=== PATIENT | female | born 1975 | race Asian ===

== ENCOUNTER 2018-07-15 13:34 | Emergency (ER) | payer OTHER ==
[~2018-07-15] VITALS: Ht 149.9 cm; Wt 79.8 kg
[2018-07-15 13:43] VITALS: TEMP 97.9
[2018-07-15 15:49] VITALS: BP 124/83
== END 2018-07-15 15:52 | disposition home or self-care (01) ==
LOC: ED 13:34
DX: M25.532 Pain in left wrist (principal)
CPT/HCPCS: 99282; J1885

== ENCOUNTER 2018-10-08 14:54 | Emergency (ER) | payer OTHER ==
[~2018-10-08] VITALS: Ht 149.9 cm; Wt 81.6 kg
[2018-10-08 15:02] VITALS: TEMP 98.6
[2018-10-08] MEDS ORDERED: LISI10TA11 PO (15:13)
[2018-10-08 15:47] LABS: PLATELET COUNT 366 K/uL (152-353)
[2018-10-08 17:14] VITALS: BP 132/64
== END 2018-10-08 17:18 | disposition home or self-care (01) ==
LOC: ED 14:54
PROVIDERS: Family Medicine
DX: J01.90 Acute sinusitis, unspecified (principal); J06.9 Acute upper respiratory infection, unspecified; H10.9 Unspecified conjunctivitis
CPT/HCPCS: 36415; 80053; 81000; 85027; 87502; 87651; 99283

== ENCOUNTER 2018-11-13 15:18 | Emergency (ER) | payer OTHER ==
[~2018-11-13] VITALS: Ht 149.9 cm; Wt 81.6 kg
[~2018-11-13 15:18] MED LIST: LISI10TA11 PO
[2018-11-13 15:34] VITALS: TEMP 99
[2018-11-13] MEDS ORDERED: LISI20TA31 PO (15:57)
[2018-11-13 17:43] VITALS: BP 152/97
== END 2018-11-13 17:48 | disposition home or self-care (01) ==
LOC: ED 15:18
DX: S93.492A Sprain of other ligament of left ankle, initial encounter (principal); X50.1XXA Overexertion from prolonged static or awkward postures, initial encounter; Y92.89 Other specified places as the place of occurrence of the external cause
CPT/HCPCS: 99283

== ENCOUNTER 2019-07-27 20:09 | Observation (INO) | payer OTHER ==
[~2019-07-27] VITALS: Ht 149.9 cm; Wt 92.1 kg
[~2019-07-27 20:09] MED LIST changes: +LISI20TA31 PO
[2019-07-27 20:11] VITALS: BP 152/109; TEMP 97.9
[2019-07-27 20:39] LABS: PLATELET COUNT 356 K/uL (152-353)
[2019-07-27 20:55] LABS: POTASSIUM 3.7 mmol/L (3.6-5.2); SODIUM 138 mmol/L (136-145)
[2019-07-27 21:01] VITALS: BP 159/99
[2019-07-27 21:47] VITALS: BP 160/86
[2019-07-27 22:16] VITALS: BP 167/101
[2019-07-27 22:54] VITALS: BP 142/94
[2019-07-27 23:29] VITALS: BP 132/93
[2019-07-28] VITALS: BP 118/80; TEMP 98.7
[2019-07-28 00:30] VITALS: BP 119/83
[2019-07-28 01:00] VITALS: BP 107/75
[2019-07-28 01:30] VITALS: BP 112/78
[2019-07-28 02:40] VITALS: BP 126/89; TEMP 98.3; Ht 149.9 cm; Wt 92.1 kg
--- NOTE | 2019-07-28 03:21 | NUR ---
PATIENT ADMITTED FROM ER TO ROOM 1114 AT 0209, SHE IS ALERT AND ORIENTED X4 AND ABLE TO MAKE HER NEEDS KNOW, SHE HAS A 18 GAUGE TO RIGHT AC, NO REDNESS OR EDEMA NOTED TO SITE. RIGHT FOOT HAS A HALF BOOT DUE TO A ANKLE SPRAIN. SLIGHT PAIN VOICED TO MID STERNUM RATED A 2 ON A PAIN SCALE. SHE HAS A COUGH WITH WHEEZING NOTED TO LUNG AYALA AND A DX OF BRONCHITIS, TELEMETRY APPLIED.
[2019-07-28 05:22] LABS: PARTIAL THROMBOPLASTIN TIME 25.9 SECONDS (24.5-33.6)
[2019-07-28 08:01] VITALS: BP 110/70; TEMP 98.2
== END 2019-07-28 16:57 | disposition home or self-care (01) ==
LOC: ED 20:09 → MED/SURG 07-28 00:36
PROVIDERS: Family Medicine; ADMIT Family Medicine
DX: R07.89 Other chest pain (principal); R06.09 Other forms of dyspnea; R06.02 Shortness of breath; I10 Essential (primary) hypertension; R11.0 Nausea; D72.828 Other elevated white blood cell count; R74.8 Abnormal levels of other serum enzymes
CPT/HCPCS: 36415; 80053; 81000; 82550; 84484; 85027; 85610; 85730; 93005; 94640; 94664; 94760; 96374; 99220; 99283; 99284; G0378; J1650; J2920; J2930

== ENCOUNTER 2020-02-09 16:37 | Emergency (ER) | payer OTHER ==
[~2020-02-09] VITALS: Ht 149.9 cm; Wt 92.1 kg
[2020-02-09 18:09] LABS: PLATELET COUNT 331 K/uL (152-353)
[2020-02-09 18:42] LABS: POTASSIUM 4.1 mmol/L (3.6-5.2); SODIUM 141 mmol/L (136-145)
== END 2020-02-09 19:22 | disposition home or self-care (01) ==
LOC: ED 16:37
PROVIDERS: Emergency Medicine
DX: J06.9 Acute upper respiratory infection, unspecified (principal); Z20.828 Contact with and (suspected) exposure to other viral communicable diseases
CPT/HCPCS: 80053; 82550; 82553; 84484; 85027; 87502; 87635; 87651; 93005; 99283; U00003

== ENCOUNTER 2020-04-14 08:02 | Outpatient (CLI) | payer OTHER ==
[2020-04-14 08:56] LABS: POTASSIUM 3.7 mmol/L (3.6-5.2)
== END 2020-04-14 23:28 | disposition home or self-care (01) ==
LOC: LABW 08:02
PROVIDERS: Internal Medicine Cardiovascular Disease
DX: R00.2 Palpitations (principal)
CPT/HCPCS: 36415; 80048; 80061; 84443